=== PATIENT | female | born 1985 | race Hispanic/Latino ===

== ENCOUNTER 2020-07-02 09:53 | Outpatient (CLI) | payer BC, OTHER | END 2020-07-02 12:05 | disposition home or self-care (01) | LOC: CSHSDC 09:53 | PROVIDERS: ATTEND Obstetrics & Gynecology | DX: Z67.11 Type A blood, Rh negative (principal); N91.2 Amenorrhea, unspecified | CPT/HCPCS: 82950; 86900; 86901; 90384; 96372 ==